=== PATIENT | female | born 1955 | race African-American/Black ===

== ENCOUNTER 2018-06-23 22:02 | Emergency (ER) | payer BC ==
[2018-06-23 22:15] VITALS: BMI 25.7
--- NOTE | 2018-06-23 22:19 | PDOC ---
History of Present Illness - General Chief Complaint: Weakness Stated Complaint: HIGH BLOOD PRESURE Time Seen by Provider: 06/23/18 22:19 Past History - Past Medical History Allergies/Adverse Reactions: Allergies Allergy/AdvReac Type Severity Reaction Status Date / Time No Known Allergies Allergy Verified 06/23/18 22:12 Home Medications: Ambulatory Orders NK [No Known Home Medication] 09/22/15 COPD: No HTN: Yes - Surgical History Abdominal Surgery: Yes (hernia repair) - Suicide/Smoking/Psychosocial Hx Smoking History: Current every day smoker Have you smoked in the past 12 months: Yes Number of Cigarettes Smoked Daily: 2 Information on smoking cessation initiated: No 'Breaking Loose' booklet given: 07/07/13 Hx Alcohol Use: No Drug/Substance Use Hx: No Substance Use Type: None *Physical Exam - Vital Signs Last Vital Signs Temp Pulse Resp BP Pulse Ox 98.1 F 104 H 20 160/103 H 100 06/23/18 22:12 06/23/18 22:12 06/23/18 22:12 06/23/18 22:12 06/23/18 22:12 Moderate Sedation - Procedure Monitoring Vital Signs: Procedure Monitoring Vital Signs Temperature 98.1 F 06/23/18 22:12 Pulse Rate 104 H 06/23/18 22:12 Respiratory Rate 20 06/23/18 22:12 Blood Pressure 160/103 H 06/23/18 22:12 O2 Sat by Pulse Oximetry (%) 100 06/23/18 22:12
--- NOTE | 2018-06-23 22:39 | PDOC ---
Attending Attestation - Resident Resident Name: Marcin Espinoza - ED Attending Attestation I have performed the following: I have examined & evaluated the patient, The case was reviewed & discussed with the resident, I agree w/resident's findings & plan - HPI HPI: 06/23/18 23:22 Ms. Harvey is a 62 year old female, with past medical history significant for HTN, CVA (2004), chronic back pain, s/p hernia repair, presents to the emergency department with headache beginning last night. The patient endorses feeling weaker than usual and chills this evening prompting the ED visit. The patient reports residual cough and sore throat for 1 month which she states has been resolving on its own. - Physicial Exam PE: 06/23/18 23:22 NAD, well appearing, PERRL, EOMI, MMM, nl conjunctiva, anicteric; neck supple. lungs clear, RRR, abdomen soft nontender. PEREZ x4, no focal neuro deficits. No peripheral edema. normal color for ethnicity, WWP. - Medical Decision Making 06/23/18 23:23 See HPI for details Vital signs reviewed, mildly hypertensive and tachy. rectal temp_normal, afebrile Prior notes reviewed, including admissions, discharges and consultations. laboratory results and imaging reviewed, basic labs and lytes wnl, UA_borderline, with some bacteria and 2+ leuk esterase. will treat as UTI, keflex x 1 week CXR_no acute pathology influenza neg EKG normal sinus rhythm, no interval abnormalities, narrow QRS, ST and T wave segments and morphology normal. Nonspecific T wave abnormalities ED course: no acute events, IVF hydration. keflex x 1 for UTI. f/u urine cultures hypertension noted, though asymptomatic - told to f/u and recheck bp, as she has h/o elevated bp and not on meds any longer. rechecked several times, HR improved. she is well appearing, pain controlled, sauer improved with tylenol. htn management provided. Dispo: Pt informed of my clinical impression, treatment recommendations and disposition plan. All questions answered to patient's satisfaction and expressed understanding and comfort with this. Reasons for returning to the ED sooner discussed with the patient otherwise, follow up with primary care physician. At the time of discharge, the patient is alert, clinically improved, tolerating po and verbalizes understanding of instructions. Patient does not suffer from an acute life-threatening medical condition at this time she is safe for outpatient follow-up. 06/23/18 23:56 06/24/18 01:43
--- NOTE | 2018-06-23 22:49 | PDOC ---
History of Present Illness - General Chief Complaint: Weakness Stated Complaint: HIGH BLOOD PRESURE Time Seen by Provider: 06/23/18 22:19 - History of Present Illness Initial Comments: 06/23/18 22:42 62 yo Female with PMH HTN, CVA (2004), Chronic back pain presents to the ED with complaint of posterior headaches that began last night followed by generalized weakness she noticed today at work. She is now complaining of diffuse chills and myalgias on presentation to the ED. She states that she did have some bronchitis a month ago which has mostly resolved at this point. She denies any chest pain, SOB, Abdominal pain, nausea, vomiting, constipation, dysuria. She does endorse some vaginal discharge which she states may be white and is occasionally pruritic. Past History - Past Medical History Allergies/Adverse Reactions: Allergies Allergy/AdvReac Type Severity Reaction Status Date / Time No Known Allergies Allergy Verified 06/23/18 22:12 Home Medications: Ambulatory Orders Cephalexin Monohydrate [Keflex -] 500 mg PO BID #9 capsule 06/24/18 Cephalexin [Keflex] 500 mg PO BID #9 capsule 06/24/18 COPD: No HTN: Yes - Surgical History Abdominal Surgery: Yes (hernia repair) - Suicide/Smoking/Psychosocial Hx Smoking History: Current every day smoker Have you smoked in the past 12 months: Yes Number of Cigarettes Smoked Daily: 2 Information on smoking cessation initiated: No 'Breaking Loose' booklet given: 07/07/13 Hx Alcohol Use: No Drug/Substance Use Hx: No Substance Use Type: None Review of Systems - Review of Systems Constitutional: Yes: Chills, Weakness HEENTM: No: Blurred Vision, Double Vision Respiratory: Yes: Cough. No: Shortness of Breath, Wheezing Cardiac (ROS): No: Chest Pain, Edema, Irregular Heart Rate, Syncope : Yes: Discharge. No: Burning, Dysuria, Frequency, Hematuria, Pain Musculoskeletal: Yes: Back Pain *Physical Exam - Vital Signs Last Vital Signs Temp Pulse Resp BP Pulse Ox 98.1 F 104 H 20 160/103 H 100 06/23/18 22:12 06/23/18 22:12 06/23/18 22:12 06/23/18 22:12 06/23/18 22:12 - Physical Exam Comments: 06/23/18 22:50 GEN: A&O no acute distress HEENT: mild pharyngeal erythema, no exudate NECK: supple, no lymphadenopathy HEART: RRR, mild systolic murmur heard best at R sternal border LUNGS: CTA b/l, no wheezes or crackles ABDOMEN: Soft, nontender to palpation EXTREMITIES: no peripheral edema Moderate Sedation - Procedure Monitoring Vital Signs: Procedure Monitoring Vital Signs Temperature 98.1 F 06/23/18 22:12 Pulse Rate 104 H 06/23/18 22:12 Respiratory Rate 20 06/23/18 22:12 Blood Pressure 160/103 H 06/23/18 22:12 O2 Sat by Pulse Oximetry (%) 100 06/23/18 22:12 ED Treatment Course - LABORATORY CBC & Chemistry Diagram: 06/23/18 23:04 06/23/18 23:04 - RADIOLOGY Radiology Studies Ordered: Category Date Time Status CHEST PA & LAT [RAD] Stat Radiology 06/23/18 22:39 Ordered Medical Decision Making - Medical Decision Making 06/23/18 23:11 62 yo female with PMH HTN, CVA (2004), chronic back pain, presents with headache for one day and weakness and chills that began today. Tachycardic, and slightly hypertensive. Will check rectal temp, CBC, CMP, CXR, UA, Flu swab. 06/23/18 23:49 Flu negative, CBC wnl, CMP wnl, UA 2+ LE and 5 WBCs with some bacteria. CXR pending. If CXR clear with treat for UTI with Keflex 500 mg PO BID for 5 days. Elevated b.p noted. Pt states she has been on blood pressure medication in the past. She states she stopped taking it a while ago as she felt she did not need it and expresses that she probably needs to be restarted on something. 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 06/24/18 00:30 CXR clear without any signs of infiltrate. Will discharge to home with Keflex 500 mg PO BID for 5 days following initial dose to be given here. *DC/Admit/Observation/Transfer Diagnosis at time of Disposition: UTI (urinary tract infection), Hypertension - Discharge Dispostion Disposition: HOME Condition at time of disposition: Stable Decision to Admit order: No - Prescriptions Prescriptions: Cephalexin [Keflex] 500 mg PO BID #9 capsule Cephalexin Monohydrate [Keflex -] 500 mg PO BID #9 capsule - Referrals Referrals: Jason Romano MD [Staff Physician] - - Patient Instructions Printed Discharge Instructions: DI for Urinary Tract Infection (UTI) Additional Instructions: You were seen in the emergency room for a some weakness, a headache, and chills. You likely have a urinary tract infection for which you were prescribed 5 days of Antibiotics. You should take keflex 500 mg twice daily until you complete the full course of antibiotics. Your blood pressure was noted to be elevated during your visit in the emergency room. As you have required blood pressure medication previously and are not currently taking anything for blood pressure, your blood pressure are likely chronically elevated and could have been further elevated by your current pain and the stress of being in the emergency room. It improved after some tylenol. It is very important that you follow up with your primary care physician in order to better control your blood pressure. The information for the [facility] [place] has been provided in case you cannot get in to see your primary care physician within one week. If you have any extremity weakness, severe headache, facial droop or slurred speech, you should return to the emergency room for evaluation. - Post Discharge Activity
[2018-06-23 23:16] LABS: BASO % 1.3 % (0-2.0); EOS % 1.8 % (0-4.5); HEMATOCRIT 39.5 % (32.4-45.2); HEMOGLOBIN 13.5 GM/dL (10.7-15.3); LYMPH % 44.2 % (8-40); MCH 27.3 pg (25.7-33.7); MCHC 34.2 g/dl (32.0-36.0); MEAN CELL VOLUME 79.8 fl (80-96); MEAN PLT VOLUME 8.7 fl (7.5-11.1); MONO % 10.9 % (3.8-10.2); NEUT % 41.8 % (42.8-82.8); PLATELET COUNT 218 K/MM3 (134-434); RBC 4.95 M/mm3 (3.60-5.2); RDW 14.6 % (11.6-15.6); WHITE BLOOD COUNT 4.9 K/mm3 (4.0-10.0)
[2018-06-23 23:17] LABS: URINE APPEARANCE CLEAR; URINE BILIRUBIN NEGATIVE (<2.0 mg/dL); URINE COLOR STRAW; URINE GLUCOSE (UA) NEGATIVE (NEGATIVE); URINE KETONE NEGATIVE (NEGATIVE); URINE LEUK ESTERASE 2+ (NEGATIVE); URINE NITRITE NEGATIVE (NEGATIVE); URINE PROTEIN NEGATIVE (NEGATIVE); URINE UROBILINOGEN NEGATIVE mg/dL (0.2-1.0)
[2018-06-23] MEDS ORDERED: SODIUM CHLORIDE 0.9% 500 ML INFUS.BAG IV ONE (23:23)
[2018-06-23 23:28] LABS: EPI CELLS RARE /HPF (FEW); URINE BACTERIA RARE /hpf (NONE SEEN)
[2018-06-23 23:40] LABS: ALBUMIN 3.6 g/dl (3.4-5.0); ALK PHOS 83 U/L (45-117); ANION GAP 5 MMOL/L (8-16); BILIRUBIN,TOTAL 0.2 mg/dL (0.2-1); BLOOD UREA NITROGEN 15 mg/dL (7-18); CALCIUM 8.5 mg/dL (8.5-10.1); CHLORIDE 107 mmol/L (98-107); CO2 27 mmol/L (21-32); CREATININE 0.9 mg/dL (0.55-1.3); GLUCOSE,RANDOM 107 mg/dL (74-106); POTASSIUM 3.8 mmol/L (3.5-5.1); SGOT/AST 17 U/L (15-37); SGPT/ALT 21 U/L (13-61); SODIUM 139 mmol/L (136-145); TOT PROT 7.4 g/dl (6.4-8.2)
[2018-06-23] MEDS ORDERED: CEPHALEXIN MONOHYDRATE 500 MG CAPSULE (UD) PO ONE (23:58)
[2018-06-24] VITALS: TEMP 98.2
[2018-06-24] MEDS ORDERED: ACETAMINOPHEN 325 MG TABLET (FP) PO ONE (00:38)
[2018-06-24] MEDS ORDERED: ACETAMINOPHEN 325 MG TABLET (FP) ONE (01:12)
[2018-06-24] MEDS ORDERED: CEPHALEXIN MONOHYDRATE 500 MG CAPSULE (UD) ONE (01:12)
[2018-06-24 02:01] VITALS: PULSE 66
[2018-06-24 02:02] VITALS: BP 184/106
--- NOTE | 2018-06-24 22:03 | EKG ---
Test Reason : Blood Pressure : / mmHG Vent. Rate : 054 BPM Atrial Rate : 054 BPM P-R Int : 144 ms QRS Dur : 080 ms QT Int : 464 ms P-R-T Axes : 045 032 044 degrees QTc Int : 440 ms SINUS BRADYCARDIA SEPTAL INFARCT , AGE UNDETERMINED ABNORMAL ECG WHEN COMPARED WITH ECG OF 08-JUL-2013 09:17, T WAVE VARIATION Confirmed by GERI OLSEN MD ([id number]) on 06/24/2018 10:03:09 PM Referred By: Confirmed By:GERI OLSEN MD
== END 2018-06-24 02:39 | disposition home or self-care (01) ==
LOC: JER 22:02
DX: I10 Essential (primary) hypertension (principal); N39.0 Urinary tract infection, site not specified; M54.89 Other dorsalgia; G89.29 Other chronic pain; Z86.73 Personal history of transient ischemic attack (TIA), and cerebral infarction without residual deficits
CPT/HCPCS: 36415; 71046-TC-FY; 80053; 81003; 81015; 85025; 87086; 87804; 93005; 93010; 99283-25